=== PATIENT | male | born 1990 | race African-American/Black ===

== ENCOUNTER 2021-03-26 19:03 | Emergency (ER) | payer SELFPAY ==
[~2021-03-26] VITALS: Ht 165.1 cm; Wt 79.5 kg
[2021-03-26 19:03] VITALS: BP 138/86
== END 2021-03-26 20:35 | disposition home or self-care (01) ==
LOC: EMS 19:03
DX: S93.401A Sprain of unspecified ligament of right ankle, initial encounter (principal); X58.XXXA Exposure to other specified factors, initial encounter; Y93.89 Activity, other specified; Y92.89 Other specified places as the place of occurrence of the external cause; Y99.8 Other external cause status; F17.210 Nicotine dependence, cigarettes, uncomplicated
CPT/HCPCS: 99282; Z7502